=== PATIENT | male | born 1950 | race Caucasian/White ===

== ENCOUNTER 2016-12-25 09:11 | Outpatient (CLI) | payer OTHER ==
--- NOTE | 2016-12-25 11:25 | DIAGNOSTIC IMAGING REPORT ---
PROCEDURE: US SOFT TISSUE ANYWHERE INDICATION: LT AXILLA MASS TECHNIQUE: Gee scale and color Doppler sonographic images of the left axilla and right for comparison were obtained COMPARISON: None. FINDINGS: In the left axilla, there are at least three discrete, partially defined hyperechoic structures, the largest measuring about 2.5 x 2.0 x 1.3 cm in internal echoes similar to fat. Color Doppler imaging demonstrates a small vessel coursing towards the center of each nodule. There is no suspicious shadowing, hypoechoic mass, or fluid collection visible. In the right axilla, there is a similar structure measuring 2.8 by 1.5 x 2.1 cm. IMPRESSION: 1. Palpable left axillary mass corresponds to a least three discrete hyperechoic structures suggestive of lymph nodes with enlarged fatty tiff. This morphology is fairly benign although clinical follow-up is recommended.
== END 2016-12-25 23:00 ==
LOC: US SRH 09:11
DX: R22.9 Localized swelling, mass and lump, unspecified (principal); R93.8 Abnormal findings on diagnostic imaging of other specified body structures